=== PATIENT | female | born 1960 | race Caucasian/White ===

== ENCOUNTER 2024-02-06 20:02 | Inpatient (IN) | payer OTHER ==
[2024-02-06 22:03] VITALS: BMI 22.6
[2024-02-06] MEDS ORDERED: IBUPROFEN 400 MG TABLET (FP) PO PRN (23:59)
[2024-02-06] MEDS ORDERED: guaiFENesin 600 MG TABLET.ER (FP) PO PRN (23:59)
[2024-02-06] MEDS ORDERED: MAG HYDROX/AL HYDROX/SIMETH 30 ML UNIT-DOSE CUP PO PRN (23:59)
[2024-02-06] MEDS ORDERED: POLYETHYLENE GLYCOL (HEALTHYLAX) 3350 17 GM PACKET PO PRN (23:59)
[2024-02-06] MEDS ORDERED: BENZONATATE 200 MG CAPSULE PO PRN (23:59)
[2024-02-06] MEDS ORDERED: DICYCLOMINE HCL 10 MG CAPSULE PO PRN (23:59)
[2024-02-06] MEDS ORDERED: ACETAMINOPHEN 325 MG TABLET (FP) PO PRN (23:59)
[2024-02-06] MEDS ORDERED: NALOXONE HCL 0.4 MG/ML VIAL IM PRN (23:59)
[2024-02-06] MEDS ORDERED: LOPERAMIDE HCL 2 MG CAPSULE PO PRN (23:59)
[2024-02-06] MEDS ORDERED: MAGNESIUM HYDROX 2400MG/30ML ORAL SUSPENSION 30 ML CUP PO PRN (23:59)
[2024-02-06] MEDS ORDERED: BISMUTH SUBSALICYLATE 524 MG/30 ML PO PRN (23:59)
[2024-02-06] MEDS ORDERED: NALOXONE HCL (KLOXXADO) 8 MG SPRAY NS PRN (23:59)
[2024-02-06] MEDS ORDERED: ONDANSETRON *ODT* 4 MG TABLET SL PRN (23:59)
[2024-02-06] MEDS ORDERED: BENZOCAINE/MENTHOL (CHLORASEPTIC ) LOZENGE MM PRN (23:59)
[2024-02-06] MEDS ORDERED: NICOTINE POLACRILEX 2 MG LOZENGE BC PRN (23:59)
[2024-02-07] MEDS: chlordiazePOXIDE HCL 25 MG CAPSULE PO SCH (00:20)
[2024-02-07] MEDS ORDERED: chlordiazePOXIDE HCL 25 MG CAPSULE ONE (01:16)
[2024-02-07] MEDS ORDERED: hydrOXYzine PAMOATE 25 MG CAPSULE (FP) PO ONE (01:48)
[2024-02-07] MEDS: hydrOXYzine PAMOATE 25 MG CAPSULE (FP) PO PRN (02:10)
[2024-02-07] MEDS: chlordiazePOXIDE HCL 25 MG CAPSULE PO PRN (06:23)
[2024-02-07 08:23] LABS: CHLORIDE 105 mmol/L (98-107); POTASSIUM 4.2 mmol/L (3.5-5.1); SODIUM 138 mmol/L (136-145)
[2024-02-07 08:31] LABS: ALBUMIN 3.1 g/dl (3.4-5.0); ANION GAP 6 mmol/L (4-13); CALCIUM 8.7 mg/dL (8.5-10.1); CO2 27 mmol/L (21-32); CREATININE 0.6 mg/dL (0.55-1.3); GLUCOSE,RANDOM 105 mg/dL (74-106); SGOT/AST 39 U/L (15-37)
[2024-02-07 08:32] LABS: BILIRUBIN,TOTAL 0.3 mg/dL (0.2-1); TOT PROT 6.5 g/dl (6.4-8.2)
[2024-02-07 08:34] LABS: ALK PHOS 106 U/L (45-117); SGPT/ALT 18 U/L (13-61)
[2024-02-07 08:43] LABS: HEMATOCRIT 29.6 % (32.4-45.2); MCHC 30.6 g/dl (32.0-36.0); MEAN PLT VOLUME 7.5 fl (7.5-11.1); PLATELET COUNT 275 10^3/uL (134-434); RBC 4.11 M/mm3 (3.60-5.2); WHITE BLOOD COUNT 6.7 K/mm3 (4.0-10.0)
[2024-02-07] MEDS: NICOTINE 14 MG/24 HOURS TOPICAL PATCH TD SCH (10:38)
[2024-02-07] MEDS: PRENATAL VITAMINS W/ FOLIC ACID TABLET (FP) PO SCH (10:38)
[2024-02-07] MEDS: BUPRENORPHINE/NALOXONE 8 MG/2 MG FILM PACKET SL SCH (14:02)
[2024-02-07] MEDS: THIAMINE 100 MG TABLET PO SCH (22:45)
[2024-02-07] MEDS: PREGABALIN 50 MG CAPSULE PO SCH (22:45)
[2024-02-07] MEDS: levETIRAcetam 250 MG TABLET PO SCH (22:46)
[2024-02-07] MEDS: MELATONIN 5 MG TABLETS PO SCH (22:46)
[2024-02-08] MEDS: chlordiazePOXIDE HCL 25 MG CAPSULE PO SCH (05:39)
[2024-02-08] MEDS: QUEtiapine FUMARATE 100 MG TABLET (FP) PO SCH (22:19)
[2024-02-09] MEDS ORDERED: chlordiazePOXIDE HCL 10 MG CAPSULE PO PRN
[2024-02-09] MEDS: chlordiazePOXIDE HCL 10 MG CAPSULE PO SCH (05:09)
[2024-02-10] MEDS: chlordiazePOXIDE HCL 10 MG CAPSULE PO SCH (05:08)
[2024-02-10] MEDS: IBUPROFEN 600 MG TABLET (FP) PO PRN (16:31)
[2024-02-11] MEDS: chlordiazePOXIDE HCL 10 MG CAPSULE PO ONE (05:53)
[2024-02-11 07:18] VITALS: RESP 16
[2024-02-11] MEDS: BUPRENORPHINE/NALOXONE 8 MG/2 MG FILM PACKET SL SCH (09:09)
[2024-02-11 09:14] VITALS: BP 96/63; PULSE 67; TEMP 97.1
[2024-02-11] MEDS ORDERED: FERROUS SO4 325 MG TABLET (FP) PO SCH (12:00)
== END 2024-02-11 09:13 | disposition home or self-care (01) | DRG 773 ==
LOC: YASAS 20:02 → Y6N 02-07 01:34
PROVIDERS: ADMIT Allergy & Immunology; ATTEND Surgery
PROC: HZ2ZZZZ Detoxification Services for Substance Abuse Treatment (ICD-10-PCS; principal; 2024-02-07)
DX: F10.230 Alcohol dependence with withdrawal, uncomplicated (principal); F11.20 Opioid dependence, uncomplicated; F14.20 Cocaine dependence, uncomplicated; F13.20 Sedative, hypnotic or anxiolytic dependence, uncomplicated; F17.210 Nicotine dependence, cigarettes, uncomplicated; F19.282 Other psychoactive substance dependence with psychoactive substance-induced sleep disorder; F31.9 Bipolar disorder, unspecified; D50.9 Iron deficiency anemia, unspecified; F41.9 Anxiety disorder, unspecified; Z86.2 Personal history of diseases of the blood and blood-forming organs and certain disorders involving the immune mechanism; Z86.19 Personal history of other infectious and parasitic diseases; Z86.11 Personal history of tuberculosis; Z91.410 Personal history of adult physical and sexual abuse
CPT/HCPCS: 36415; 71046-TC-FY; 80053; 80305; 80307; 82607; 82728; 82747; 83540; 83550; 85014; 85027; 86780; 93005; 93010

== ENCOUNTER 2024-07-18 15:31 | Inpatient (IN) | payer BC ==
[2024-07-18 17:28] VITALS: BMI 25.7
[2024-07-18] MEDS ORDERED: NICOTINE POLACRILEX 2 MG LOZENGE BC PRN (21:40)
[2024-07-18] MEDS ORDERED: BISMUTH SUBSALICYLATE 524 MG/30 ML PO PRN (21:40)
[2024-07-18] MEDS ORDERED: NALOXONE (NARCAN) HCL 4 MG/0.1 ML SPRAY NS PRN (21:40)
[2024-07-18] MEDS ORDERED: guaiFENesin 600 MG TABLET.ER (FP) PO PRN (21:40)
[2024-07-18] MEDS ORDERED: LOPERAMIDE HCL 2 MG CAPSULE PO PRN (21:40)
[2024-07-18] MEDS ORDERED: ONDANSETRON *ODT* 4 MG TABLET SL PRN (21:40)
[2024-07-18] MEDS ORDERED: IBUPROFEN 400 MG TABLET (FP) PO PRN (21:40)
[2024-07-18] MEDS ORDERED: POLYETHYLENE GLYCOL (HEALTHYLAX) 3350 17 GM PACKET PO PRN (21:40)
[2024-07-18] MEDS ORDERED: BENZONATATE 200 MG CAPSULE PO PRN (21:40)
[2024-07-18] MEDS ORDERED: BENZOCAINE/MENTHOL (CHLORASEPTIC ) LOZENGE MM PRN (21:40)
[2024-07-18] MEDS ORDERED: MAGNESIUM HYDROX 2400MG/30ML ORAL SUSPENSION 30 ML CUP PO PRN (21:40)
[2024-07-18] MEDS ORDERED: MAG HYDROX/AL HYDROX/SIMETH 30 ML UNIT-DOSE CUP PO PRN (21:40)
[2024-07-18] MEDS ORDERED: ACETAMINOPHEN 325 MG TABLET (FP) PO PRN (21:40)
[2024-07-18] MEDS ORDERED: chlordiazePOXIDE HCL 25 MG CAPSULE PO PRN (21:43)
[2024-07-18] MEDS ORDERED: TRIMETHOBENZAMIDE HCL 200MG/2ML INJ IM ONE (22:06)
[2024-07-18] MEDS: TRIMETHOBENZAMIDE HCL 200MG/2ML INJ IM ONE (22:15)
[2024-07-18] MEDS ORDERED: chlordiazePOXIDE HCL 25 MG CAPSULE ONE (23:04)
[2024-07-18] MEDS: chlordiazePOXIDE HCL 25 MG CAPSULE PO SCH (23:12)
[2024-07-19] MEDS: THIAMINE 100 MG TABLET PO SCH (01:04)
[2024-07-19] MEDS: MELATONIN 5 MG TABLETS PO SCH (01:04)
[2024-07-19 09:42] LABS: HEMATOCRIT 35.1 % (32.4-45.2); HEMOGLOBIN 11.6 GM/dL (10.7-15.3); MCH 30.3 pg (25.7-33.7); MEAN PLT VOLUME 7.6 fl (7.5-11.1); PLATELET COUNT 326 10^3/uL (134-434); RBC 3.81 M/mm3 (3.60-5.2); RDW 13.6 % (11.6-15.6); WHITE BLOOD COUNT 7.5 K/mm3 (4.0-10.0)
[2024-07-19 10:27] LABS: CHLORIDE 108 mmol/L (98-107); POTASSIUM 3.9 mmol/L (3.5-5.1); SODIUM 141 mmol/L (136-145)
[2024-07-19 10:31] LABS: ALBUMIN 3.2 g/dl (3.4-5.0); ANION GAP 6 mmol/L (4-13); BLOOD UREA NITROGEN 10.7 mg/dL (7-18); CO2 28 mmol/L (21-32)
[2024-07-19 10:32] LABS: GLUCOSE,RANDOM 110 mg/dL (74-106)
[2024-07-19 10:34] LABS: SGOT/AST 23 U/L (15-37); SGPT/ALT 13 U/L (13-61)
[2024-07-19 10:35] LABS: CREATININE 0.5 mg/dL (0.55-1.3)
[2024-07-19 10:36] LABS: BILIRUBIN,TOTAL 0.7 mg/dL (0.2-1); TOT PROT 6.4 g/dl (6.4-8.2)
[2024-07-19] MEDS: NICOTINE 21 MG/24 HOURS TOPICAL PATCH TD SCH (10:36)
[2024-07-19 10:37] LABS: ALK PHOS 103 U/L (45-117)
[2024-07-19] MEDS: PRENATAL VITAMINS W/ FOLIC ACID TABLET (FP) PO SCH (10:37)
[2024-07-19] MEDS: IBUPROFEN 600 MG TABLET (FP) PO PRN (16:55)
[2024-07-19] MEDS: METHOCARBAMOL 500 MG TABLET PO PRN (16:55)
[2024-07-19] MEDS: BUPRENORPHINE/NALOXONE 8 MG/2 MG FILM PACKET SL SCH (17:52)
[2024-07-19] MEDS: QUEtiapine FUMARATE 100 MG TABLET (FP) PO SCH (22:31)
[2024-07-20] MEDS: chlordiazePOXIDE HCL 25 MG CAPSULE PO SCH (05:56)
[2024-07-21] MEDS ORDERED: chlordiazePOXIDE HCL 10 MG CAPSULE PO PRN
[2024-07-21] MEDS: chlordiazePOXIDE HCL 10 MG CAPSULE PO SCH (05:55)
[2024-07-21] MEDS: TOPIRAMATE 25 MG TABLET PO SCH (15:57)
[2024-07-22] MEDS: chlordiazePOXIDE HCL 10 MG CAPSULE PO SCH (05:50)
[2024-07-23] MEDS: chlordiazePOXIDE HCL 10 MG CAPSULE PO ONE (05:55)
[2024-07-23 10:11] VITALS: BP 92/61; PULSE 78; RESP 16; TEMP 96.8
[2024-07-23] MEDS: NALOXONE (NYS OPIOID OVERDOSE PROGRAM) 4 MG/0.1 ML SPRAY NS PRN (10:56)
== END 2024-07-23 10:01 | disposition home or self-care (01) | DRG 773 ==
LOC: YASAS 15:31 → Y6N 22:49
PROVIDERS: ADMIT Allergy & Immunology; ATTEND Surgery
PROC: HZ2ZZZZ Detoxification Services for Substance Abuse Treatment (ICD-10-PCS; principal; 2024-07-18)
DX: F10.230 Alcohol dependence with withdrawal, uncomplicated (principal); F11.20 Opioid dependence, uncomplicated; F14.20 Cocaine dependence, uncomplicated; F17.213 Nicotine dependence, cigarettes, with withdrawal; F31.9 Bipolar disorder, unspecified; F41.9 Anxiety disorder, unspecified; B18.2 Chronic viral hepatitis C; Z86.11 Personal history of tuberculosis
CPT/HCPCS: 36415; 71046-TC-FY; 80053; 80305; 80307; 85027; 86780; 93005; 93010